=== PATIENT | male | born 1960 | race Caucasian/White ===

== ENCOUNTER → 2017-02-03 | Day surgery (SDC) | payer OTHER ==
[~2017-02-03] VITALS: Ht 180.3 cm; Wt 93.0 kg
[~2017-02-03] MED LIST: AUGMENTIN 875 M1 TAB PO; KEFLEX500 M1 PO; MOTRIN800 MG PO; PERCOCET 325 MG1 TA2 PO; PERCOCET 5-3251 EACH PO
--- NOTE | 2017-02-03 10:59 | Operative Report ---
Operative/Inv Procedure Report Surgery Date: 02/03/17 Name of Procedure: Division and inset flap left hand with debridement., Range of motion left index and long MCPs and PIPs DIPs Pre-Operative Diagnosis: Status post crush injury with flap inset Post-Operative Diagnosis: Same Estimated Blood Loss: scant Surgeon/Care Transitions Nurse: Roc Bardales MD Anesthesia: moderate sedation, block Operative/Procedure Note Note: Patient was counseled regards the procedure the alternatives risks and expected outcomes as relates to division inset with debridement of previous flap left hand. The patient has a cross finger flap from the left long to small finger due to crush amputation of the tip of the index. In some ischemia of the flap and it is unknown the depth of the ischemic. 4 consent was signed in regards to the expectations the risks to procedure and the alternatives. Once agreed informed consent was signed and then the patient was taken to the operating room. Dr. Garrett boots are placed intravenous sedation was given as well as antibiotics. Left hand was prepped and draped in usual sterile fashion. The flap was divided on the ulnar aspect of the index finger with some excess flap remaining from the long. Debridement was carried out of the superficial dry eschar from ischemia on the tip of the index. Soft healthy soft tissue. Bleeding was carried out of any nonviable tissue was irrigated. Left long finger had a small amount of previous healed skin graft excised and then the remaining flap was inset. Sutures were removed from the previous surgical site and the wound was irrigated and debrided as needed. Sterile dressings were placed. Range of motion was carried out of the joints while under anesthesia. The injury motion improved in all of the joints including the index and long Mcp PIPs and DIPs.
== END ==
LOC: STS 03:07
DX: S68.121A Partial traumatic metacarpophalangeal amputation of left index finger, initial encounter (principal); L98.8 Other specified disorders of the skin and subcutaneous tissue; Z87.891 Personal history of nicotine dependence
CPT/HCPCS: J0131; J0690; J1885; J2250